=== PATIENT | male | born 1965 | race Caucasian/White ===

== ENCOUNTER → 2018-09-13 | Outpatient (REF) ==
[~2018-09-13] MED LIST: FLEXERIL OR; GABA600T3 OR; NEUR400C OR; PRIL20CA OR; TIZA4TAB OR; TRAM50TA2 OR; VICODINES TAB OR
--- NOTE | 2018-09-13 14:38 | REP ---
Lumbar spine series: Three views. History: Degenerative disc disease. No comparison imaging. Findings: There is reversal of the normal cervical lordosis. Lumbar vertebral body heights are preserved. Alignment is otherwise normal. There are degenerative disc changes at the each lumbar level, most pronounced at L4-5 and L5-S1 where there is reactive sclerosis, disc space narrowing, and spur formation. There is disc narrowing and spur formation at L3-4 and at L2-3 as well. Pedicles and posterior elements are intact. Psoas margins and flank stripes are intact. Impression: Degenerative disc disease most pronounced at L4-5 and L5-S1. Reversal of the normal cervical lordosis. Electronically Signed by Anuj Figueroa MD 09/13/2018 08:43 P
== END ==
LOC: M SMT 13:38
PROVIDERS: ATTEND Internal Medicine
DX: M51.36 Other intervertebral disc degeneration, lumbar region (principal); M51.37 Other intervertebral disc degeneration, lumbosacral region; M25.78 Osteophyte, vertebrae